=== PATIENT | female | born 1985 | race Caucasian/White ===

== ENCOUNTER 2017-04-11 18:31 | Emergency (ER) | payer OTHER ==
[~2017-04-11] VITALS: Ht 172.7 cm; Wt 90.7 kg
[~2017-04-11 18:31] MED LIST: CEPH-263 PO; CEPH-264 PO; CETI10TA22 PO; DIPH25CA58 PO; FAMO-63 PO; FAMO20TA5 PO; HYDR-971 PO; HYDR25TA PO; ONDA4TAB10 SL; PRED50TA PO
[2017-04-11] MEDS ORDERED: ACETAMINOPHEN 325 MG TABLET PO ONE (19:30)
[2017-04-11] MEDS ORDERED: HYDROcodone/APAP 5/325MG 1 TAB TABLET PO ONE (19:30)
--- NOTE | 2017-04-11 20:01 | PHYS DOC ---
Past History Past Medical History: No Pertinent History Past Surgical History: No Surgical History Smoking: Non-smoker Alcohol Use: Occasionally Drug Use: None Adult General Chief Complaint Chief Complaint: FEVER HPI HPI 31-year-old female patient complaining of nausea and feeling good since yesterday and states she had sore throat since this morning with radiation to her jaw and ear. Patient states she feels hungry but unable to eat because of pain. Patient complaining of mild cough and congestion. Patient states she had fever of 104 at home and took ibuprofen around 1300 today. Patient denies vomiting, diarrhea, , neck pain, sick contact. Review of Systems Review of Systems Constitutional: Reports fever Eyes: Denies change in visual acuity, redness, or eye pain [] HENT: Reports nasal congestion and sore throat Respiratory: Reports cough, denies shortness of breath [] Cardiovascular: No additional information not addressed in HPI [] GI: Denies abdominal pain, vomiting, bloody stools or diarrhea, reports nausea : Denies dysuria or hematuria [] Musculoskeletal: Denies back pain or joint pain [] Integument: Denies rash or skin lesions [] Neurologic: Denies headache, focal weakness or sensory changes [] Endocrine: Denies polyuria or polydipsia [] All other systems were reviewed and found to be within normal limits, except as documented in this note. Current Medications Current Medications Current Medications Medications (Trade) Dose Ordered Sig/Digna Start Time Stop Time Status Last Admin Dose Admin Acetaminophen (Tylenol) 650 mg 1X ONCE 04/11/17 19:30 04/11/17 19:31 DC 04/11/17 19:41 650 MG Acetaminophen/ Hydrocodone Bitart (Lortab 5/325) 1 tab 1X ONCE 04/11/17 19:30 04/11/17 19:31 DC 04/11/17 19:41 1 TAB Allergies Allergies Allergies Coded Allergies Type Severity Reaction Last Updated Verified promethazine Allergy Unknown 04/11/17 Yes Physical Exam Physical Exam Constitutional: Well developed, well nourished,moderate distress, non-toxic appearance, temperature 103 HENT: Normocephalic, atraumatic, bilateral external ears normal, oropharynx moist, right tonsillar edema and erythema exudates, nose normal. [] Eyes: PERRLA, EOMI, conjunctiva normal, no discharge. [] Neck: Normal range of motion, no tenderness, supple, no stridor. [] Cardiovascular: Tachycardia, no murmur [] Lungs & Thorax: Bilateral breath sounds clear to auscultation [] Abdomen: Bowel sounds normal, soft, no tenderness, no masses, no pulsatile masses. [] Skin: Warm, dry, no erythema, no rash. [] Back: No tenderness, no CVA tenderness. [] Extremities: No tenderness, no cyanosis, no clubbing, ROM intact, no edema. [] Neurologic: Alert and oriented X 3, normal motor function, normal sensory function, no focal deficits noted. [] Psychologic: Affect normal, judgement normal, mood normal. [] Current Patient Data Vital Signs Vital Signs Date Time Temp Pulse Resp B/P (MAP) Pulse Ox O2 Delivery O2 Flow Rate FiO2 04/11/17 18:31 103.0 119 20 99 Room Air EKG EKG [] Radiology/Procedures Radiology/Procedures [] Course & Med Decision Making Course & Med Decision Making Pertinent Labs reviewed. (See chart for details) Evaluation of patient in ER showed 31-year-old female patient with complaining of sore throat and nausea and fever. Patient had tonsillar erythema and exudate with positive strep test. Patient wants oral antibiotic. Patient treated with Tylenol and hydrocodone and felt better. I've spoken with the patient and/or caregivers. I've explained the patient's condition, diagnosis and treatment plan based on information available to me at this time. I've answered the patient's and/or caregivers questions and addressed any concerns. The patient and/or caregivers have a good understanding the patient's diagnosis, condition and treatment plan as can be expected at this point. Vital signs have been stabilized. The patient's condition is stable for discharge from the emergency department. The patient will pursue further outpatient evaluation with her primary care provider or other designated consulting physician as outlined in the discharge instructions. Patient and/or caregivers are agreeable to this plan of care and follow-up instructions have been explained in detail. The patient and/or caregivers have received these instructions in written format and expressed understanding of these discharge instructions. The patient and her caregivers are aware that if any significant change in condition or worsening of symptoms should prompt him to immediately return to this of the closest emergency department. If an emergent department is not readily available I would encourage him to call 911. Myah Disclaimer Myah Disclaimer This electronic medical record was generated, in whole or in part, using a voice recognition dictation system. Departure Departure: Impression: Primary Impression: Acute streptococcal pharyngitis Additional Impressions: Fever Tobacco abuse Tobacco abuse counseling Disposition: HOME, SELF-CARE (At 2014) Condition: IMPROVED Referrals: [facility] (PCP) Patient Instructions: Strep Throat, Group A Streptococcus Additional Instructions: Drink plenty of liquids Follow-up with your primary care physician in 3-5 days Return to ER if not getting better Scripts Ibuprofen (IBUPROFEN) 800 Mg Tablet 1 TAB PO TID, #30 TAB Prov: ARCHANA PETERSEN MD 04/11/17 Hydrocodone Bit/Acetaminophen (NORCO 5-325 TABLET) 1 Each Tablet 1 TAB PO PRN Q6HRS Y for PAIN, #10 TAB 0 Refills Prov: ARCHANA PETERSEN MD 04/11/17 Amoxicillin/Potassium Clav (AUGMENTIN 875-125 TABLET) 1 Each Tablet 1 TAB PO BID, #20 TAB Prov: ARCHANA PETERSEN MD 04/11/17 Problem Qualifiers ARCHANA PETERSEN MD Apr 11, 2017 20:01
[2017-04-11] MEDS ORDERED: HYDR-971 PO (20:19)
[2017-04-11] MEDS ORDERED: IBUP800T19 PO (20:19)
[2017-04-11] MEDS ORDERED: AMOX1TAB61 PO (20:19)
[2017-04-11 20:28] LABS: INFLUENZA A PATIENT NEGATIVE (NEGATIVE); INFLUENZA B PATIENT NEGATIVE (NEGATIVE)
[2017-04-11 20:40] VITALS: BP 106/55
== END 2017-04-11 20:40 | disposition home or self-care (01) ==
LOC: ER 18:31
DX: J02.0 Streptococcal pharyngitis (principal); Z72.0 Tobacco use; Z71.6 Tobacco abuse counseling; Z88.8 Allergy status to other drugs, medicaments and biological substances
CPT/HCPCS: 87804; 87880; 99284